=== PATIENT | female | born 1965 | race Two or more races ===

== ENCOUNTER 2021-02-22 13:48 | Inpatient (IN) | payer OTHER ==
[~2021-02-22] VITALS: Ht 175.3 cm; Wt 93.4 kg
[~2021-02-22 13:48] MED LIST: CHILDREN'S ASPI81 MG PO; CILOSTAZOL100 MG PO; HYDROCHLOROTHIA25 MG PO; ZESTRIL30 MG PO
[2021-02-27] MEDS ORDERED: IBUPROFEN800 MG PO (06:57)
[2021-02-27] MEDS ORDERED: POLY119PG PO (06:57)
[2021-02-27] MEDS ORDERED: NEURONTIN600 MG PO (06:57)
[2021-02-27] MEDS ORDERED: SIMETHICONE125 M1 PO (06:58)
== END 2021-02-27 08:36 | disposition home or self-care (01) | DRG 743 ==
LOC: O/R 02-25 05:00 → OB/GYN 02-25 05:00 → SURH 02-25 07:26 → OB/GYN 02-25 15:20
PROVIDERS: ADMIT Obstetrics & Gynecology; ATTEND Obstetrics & Gynecology
PROC: 0JQC0ZZ Repair Pelvic Region Subcutaneous Tissue and Fascia, Open Approach (ICD-10-PCS; 2021-02-25)
PROC: 0UT97ZZ Resection of Uterus, Via Natural or Artificial Opening (ICD-10-PCS; principal; 2021-02-25 09:45)
DX: N81.4 Uterovaginal prolapse, unspecified (principal); N81.89 Other female genital prolapse; N81.6 Rectocele; N94.10 Unspecified dyspareunia; N72 Inflammatory disease of cervix uteri; D25.1 Intramural leiomyoma of uterus